=== PATIENT | female | born 1950 | race Two or more races ===

== ENCOUNTER 2017-01-06 08:06 | Day surgery (SDC) | payer MEDICARE, BC ==
[2017-01-06] MEDS ORDERED: PROPOFOL 200 MG/20 ML BOTTLE IV ONE (08:07)
[2017-01-06] MEDS ORDERED: SEVOFLURANE 250 ML BOTTLE IH ONE (08:07)
[2017-01-06] MEDS ORDERED: EPHEDRINE SULFATE 50 MG/ML AMPUL MC ONE (08:07)
[2017-01-06] MEDS ORDERED: DEXAMETHASONE SOD PHOSPHATE 4 MG INJ IV ONE (08:07)
[2017-01-06] MEDS ORDERED: CEFAZOLIN 1 G VIAL MC ONE (08:07)
[2017-01-06] MEDS ORDERED: ONDANSETRON 4 MG/2 ML VIAL IV ONE (08:07)
[2017-01-06] MEDS ORDERED: IV LACTATED RINGERS SOLUTION 1,000 ML BAG IV ONE (08:07)
[2017-01-06] MEDS ORDERED: POLYMYXIN B SULFATE 500,000 UNITS, BACITRACIN 50,000 UNITS, NORMAL SALINE 20 ML MC ONE ×3 (10:15)
[2017-01-06] MEDS ORDERED: FENTANYL CITRATE 100 MCG/2 ML AMPUL ONE ×2 (11:08→12:48)
[2017-01-06] MEDS ORDERED: MIDAZOLAM HCL 2 MG/2 ML VIAL ONE (11:08)
[2017-01-06] MEDS ORDERED: BUPIVACAINE PF 0.5% 30 ML VIAL ONE (11:22)
[2017-01-06] MEDS ORDERED: ONDANSETRON 4 MG/2 ML VIAL ONE (12:48)
[2017-01-06] MEDS ORDERED: TRAMADOL HCL 50 MG TABLET ONE (13:49)
== END 2017-01-06 14:20 | disposition home or self-care (01) ==
LOC: DS 08:06
PROVIDERS: ATTEND Orthopaedic Surgery
DX: D18.09 Hemangioma of other sites (principal); E03.9 Hypothyroidism, unspecified; E22.1 Hyperprolactinemia; I10 Essential (primary) hypertension; E78.00 Pure hypercholesterolemia, unspecified; Z90.710 Acquired absence of both cervix and uterus; E66.9 Obesity, unspecified; K21.9 Gastro-esophageal reflux disease without esophagitis; F41.9 Anxiety disorder, unspecified; F32.9 Major depressive disorder, single episode, unspecified; D64.9 Anemia, unspecified; D69.6 Thrombocytopenia, unspecified; Z98.890 Other specified postprocedural states
CPT/HCPCS: 71010; A4649; A4663; J0690; J1100; J2250; J2405; J3010; J3490; J7120